=== PATIENT | male | born 1990 | race Caucasian/White ===

== ENCOUNTER 2017-09-16 20:26 | Emergency (ER) | payer BC ==
[~2017-09-16] VITALS: Ht 190.5 cm; Wt 118.2 kg
[2017-09-16 20:40] VITALS: BP 126/74; Ht 190.5 cm; Wt 118.2 kg
[2017-09-16] MEDS ORDERED: KEFLEX500 MG PO (21:31)
== END 2017-09-16 21:38 | disposition home or self-care (01) ==
LOC: D.ER 20:26
DX: S91.342A Puncture wound with foreign body, left foot, initial encounter (principal); W45.8XXA Other foreign body or object entering through skin, initial encounter; Y93.89 Activity, other specified; Y92.89 Other specified places as the place of occurrence of the external cause